=== PATIENT | female | born 1990 | race Caucasian/White ===

== ENCOUNTER 2018-04-24 11:09 | Inpatient (IN) | payer OTHER ==
[~2018-04-24] VITALS: Ht 144.8 cm; Wt 0.9 kg
[2018-04-24] MEDS ORDERED: PRENATAL TABLE1 EAC3 PO (12:13)
[2018-04-24] MEDS ORDERED: SYNTHROID150 MCG PO (12:13)
[2018-04-24] MEDS ORDERED: FOLIC ACID1 MG PO (12:14)
[2018-04-24] MEDS ORDERED: PROGESTERONE200 MG VAG (12:26)
== END 2018-04-28 12:14 | disposition home or self-care (01) | DRG 766 ==
LOC: PED 11:09 → LDR 11:09 → O/R 04-25 20:28 → PED 04-25 21:38 → OB/GYN 04-26 14:59
PROVIDERS: Specialist
PROC: 4A033R1 Measurement of Arterial Saturation, Peripheral, Percutaneous Approach (ICD-10-PCS; 2018-04-25)
PROC: 4A1HXCZ Monitoring of Products of Conception, Cardiac Rate, External Approach (ICD-10-PCS; 2018-04-25)
PROC: 10D00Z1 Extraction of Products of Conception, Low, Open Approach (ICD-10-PCS; principal; 2018-04-25 17:00)
DX: O76 Abnormality in fetal heart rate and rhythm complicating labor and delivery (principal); O99.284 Endocrine, nutritional and metabolic diseases complicating childbirth; E03.8 Other specified hypothyroidism; O99.02 Anemia complicating childbirth; D50.8 Other iron deficiency anemias; Z3A.30 30 weeks gestation of pregnancy; Z37.0 Single live birth

== ENCOUNTER 2023-12-20 13:44 | Outpatient (CLI) | payer OTHER ==
[~2023-12-20 13:44] MED LIST: FOLIC ACID1 MG PO; PRENATAL TABLE1 EAC3 PO; PROGESTERONE200 MG VAG; SYNTHROID150 MCG PO
== END 2023-12-20 13:45 | disposition home or self-care (01) ==
LOC: PRENATAL 13:44
PROVIDERS: ATTEND Obstetrics & Gynecology Maternal & Fetal Medicine
DX: O36.80X0 Pregnancy with inconclusive fetal viability, not applicable or unspecified (principal); Z36.82 Encounter for antenatal screening for nuchal translucency; O34.219 Maternal care for unspecified type scar from previous cesarean delivery; Z3A.12 12 weeks gestation of pregnancy

== ENCOUNTER 2024-02-19 09:04 | Outpatient (CLI) | payer OTHER | END 2024-02-19 09:05 | disposition home or self-care (01) | LOC: PRENATAL 09:04 | PROVIDERS: ATTEND Obstetrics & Gynecology Maternal & Fetal Medicine | DX: O35.3XX0 Maternal care for (suspected) damage to fetus from viral disease in mother, not applicable or unspecified (principal); O44.00 Complete placenta previa NOS or without hemorrhage, unspecified trimester; O09.219 Supervision of pregnancy with history of pre-term labor, unspecified trimester; O34.219 Maternal care for unspecified type scar from previous cesarean delivery; Z3A.21 21 weeks gestation of pregnancy ==

== ENCOUNTER 2024-03-10 12:35 | Outpatient (CLI) | payer OTHER ==
[2024-03-10] MEDS ORDERED: RINGERS SOLUTION,LACTATED 1,000 ML IV SCH (13:00)
[2024-03-10 13:47] LABS: URINE APPEARANCE Clear; URINE BILIRRUBIN Negative (NEGATIVE); URINE BLOOD Negative; URINE COLOR Yellow; URINE GLUCOSE Negative (NEGATIVE); URINE LEUKOCYTE Trace; URINE NITRATE Negative; URINE PROTEIN Negative (NEGATIVE); URINE UROBILINOGEN 0.2 E.U./dl
[2024-03-10] MEDS ORDERED: OXYTOCIN 10 UNITS/ML VIAL ONE (13:50)
[2024-03-10 13:51] LABS: URINE EPITHELIAL CELLS 67.8 uL (0.0-38.8); URINE RBC 5.3 uL (0.0-20.8); URINE WBC 40.8 uL (0.0-23.2)
[2024-03-10 13:55] LABS: HEMATOCRIT 27.7 % (36.0-45.00); HEMOGLOBIN 9.3 g/dL (12.0-15.00); MEAN CELL VOLUME 87.2 fL (80.00-100.00); MEAN CORPUSCULAR HEMOGLOBIN 29.3 pg (27.00-32.0); MEAN CORPUSCULAR HGB CONC 33.5 g/dl (32.0-36.0); PLATELET COUNT 314 K/uL (150-450); RED BLOOD COUNT 3.17 M/uL (4.00-6.00); RED CELL DISTRIBUTION WIDTH 13.8 % (11.5-14.5)
== END 2024-03-10 19:20 | disposition home or self-care (01) ==
LOC: OBS/DEL 12:35
PROVIDERS: ATTEND Obstetrics & Gynecology
DX: O26.892 Other specified pregnancy related conditions, second trimester (principal); Z3A.25 25 weeks gestation of pregnancy; O26.849 Uterine size-date discrepancy, unspecified trimester; O60.00 Preterm labor without delivery, unspecified trimester; O34.219 Maternal care for unspecified type scar from previous cesarean delivery

== ENCOUNTER 2024-06-15 15:29 | Inpatient (IN) | payer OTHER ==
[~2024-06-15] VITALS: Ht 121.9 cm; Wt 83.9 kg
[2024-06-15 15:21] LABS: PH,URINE 5.5 (5.0-8.0); URINE APPEARANCE Clear; URINE BILIRRUBIN Negative (NEGATIVE); URINE BLOOD Negative; URINE COLOR Yellow; URINE GLUCOSE Negative (NEGATIVE); URINE KETONE 15 (NEGATIVE); URINE LEUKOCYTE Negative; URINE NITRATE Negative; URINE PROTEIN Negative (NEGATIVE)
[2024-06-15 15:24] LABS: URINE BACTERIA 2765.3 uL (0.0-1933); URINE EPITHELIAL CELLS 24.1 uL (0.0-38.8); URINE RBC 3.5 uL (0.0-20.8)
[2024-06-15 15:26] LABS: HEMATOCRIT 27.5 % (36.0-45.00); MEAN CELL VOLUME 73.9 fL (80.00-100.00); MEAN CORPUSCULAR HGB CONC 32.2 g/dl (32.0-36.0); PLATELET COUNT 346 K/uL (150-450); RED BLOOD COUNT 3.72 M/uL (4.00-6.00)
[2024-06-15 15:28] LABS: MEAN CORPUSCULAR HEMOGLOBIN 23.9 pg (27.00-32.0)
[2024-06-15 15:29] LABS: HEMOGLOBIN 8.9 g/dL (12.0-15.00)
[2024-06-15 15:42] LABS: INR < 0.93; PARTIAL THROMBOPLASTIN TIME 26.5 SECONDS (22.0-34.0); PROTHROMBIN TIME 9.4 SECONDS (9.0-11.5)
[2024-06-15 15:48] LABS: URINE CAST 0.15 uL (0.0-1.40)
[2024-06-15 15:48] LABS: ALBUMIN 2.8 gm/dL (3.4-5.0); BILIRUBIN TOTAL 0.65 mg/dL (0.3-1.2); CALCIUM 9.5 mg/dL (8.5-10.1); CREATININE SERUM 0.52 mg/dL (0.55-1.02); GFR 136.65; GLOBULINA 4.2 G/DL (2.4-3.5); POTASSIUM 4.22 mEq/L (3.5-5.1)
[2024-06-22] MEDS ORDERED: SYNTHROID100 MCG PO (06:39)
[2024-06-22] MEDS ORDERED: OXYTOCIN 10 UNITS/ML VIAL ONE ×2 (13:10→21:25)
[2024-06-22] MEDS ORDERED: ERYTHROMYCIN BASE 1 GM TUBE OP ONE (13:11)
[2024-06-22] MEDS ORDERED: OXYTOCIN 1,000 ML IV SCH (15:00)
[2024-06-22] MEDS ORDERED: MORPHINE SULFATE 4 MG/ML CARTRIDGE IV PRN (15:00)
[2024-06-22] MEDS ORDERED: RINGERS SOLUTION,LACTATED 1,000 ML IV SCH (15:00)
[2024-06-22] MEDS ORDERED: CEFAZOLIN SODIUM 1,000 MG VIAL ONE (15:05)
[2024-06-22] MEDS ORDERED: DOCUSATE SODIUM 100MG CAP PO SCH (17:00)
[2024-06-22] MEDS ORDERED: SIMETHICONE 125 MG CAPSULE PO SCH (18:00)
[2024-06-22 19:19] LABS: HEMATOCRIT 28.8 % (36.0-45.00); HEMOGLOBIN 9.1 g/dL (12.0-15.00); MEAN CORPUSCULAR HEMOGLOBIN 24.9 pg (27.00-32.0); MEAN CORPUSCULAR HGB CONC 31.5 g/dl (32.0-36.0); PLATELET COUNT 258 K/uL (150-450); RED BLOOD COUNT 3.64 M/uL (4.00-6.00); RED CELL DISTRIBUTION WIDTH 18.5 % (11.5-14.5)
[2024-06-22] MEDS ORDERED: SIMETHICONE 125 MG CAPSULE PO ONE (21:25)
[2024-06-23] MEDS ORDERED: IBUprofen 800 MG TABLET PO PRN (09:00)
== END 2024-06-25 15:48 | disposition home or self-care (01) | DRG 787 ==
LOC: O/R 06-22 06:24 → OB/GYN 06-22 12:00
PROVIDERS: ADMIT Obstetrics & Gynecology; ATTEND Obstetrics & Gynecology
PROC: 4A1HXCZ Monitoring of Products of Conception, Cardiac Rate, External Approach (ICD-10-PCS; 2024-06-22)
PROC: 10D00Z1 Extraction of Products of Conception, Low, Open Approach (ICD-10-PCS; principal; 2024-06-22 12:00)
DX: O34.211 Maternal care for low transverse scar from previous cesarean delivery (principal); O98.52 Other viral diseases complicating childbirth; R89.4 Abnormal immunological findings in specimens from other organs, systems and tissues; O99.824 Streptococcus B carrier state complicating childbirth; Z3A.39 39 weeks gestation of pregnancy; Z37.0 Single live birth; Z20.822 Contact with and (suspected) exposure to COVID-19